=== PATIENT | male | born 1995 | race Caucasian/White ===

== ENCOUNTER 2016-12-21 14:27 | Emergency (ER) | payer OTHER ==
[2016-12-21] MEDS ORDERED: ONDANSETRON 4 MG/2 ML VIAL IVP ONE (14:57)
[2016-12-21] MEDS ORDERED: METOCLOPRAMIDE 10 MG/2 ML VIAL IVP ONE (14:57)
[2016-12-21] MEDS ORDERED: NS 1,000 ML IV ONE ×2 (14:57→15:48)
--- NOTE | 2016-12-21 15:10 | EDPHY ---
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 It started after exercising. He has been constant with multiple episodes of vomiting. No bloody emesis. No fever. No trauma to the abdomen. No pain other than the cramping sensation of vomiting. No diarrhea or constipation. No flank pain or urinary complaints. No medications taken today. No known sick contacts. He does associate this with some subjective fever and chills as well as some cramping throughout the body. No other associated complaints or modifying factors REVIEW OF SYSTEMS: Ten systems reviewed and are negative unless otherwise noted in the HPI PERTINENT MEDICAL HISTORY: None EXAMINATION General Appearance: Alert, no distress Head: normocephalic, atraumatic Eyes: Pupils equal and round, no conjunctival pallor or injection ENT, Mouth: Mucous membranes moist. Uvula midline. Neck: Normal inspection, supple, non-tender. Trachea is midline. Respiratory: Lungs are clear to auscultation. No wheezing, rhonchi or crackles. Cardiovascular: Regular rate and rhythm. No murmur. Pulses intact distally. Gastrointestinal: Abdomen is soft and nontender. No distention, rigidity or tympany. Nonacute abdomen Neurological: GCS 15. A&O, nonfocal Skin: Warm and dry, no rash. No petechiae or purpura Extremities: Nontender, no pedal edema Psychiatric: Mood and affect normal DIFFERENTIAL DIAGNOSES: Including but not limited to gastritis, enteritis, colitis, cholecystitis, cholelithiasis, influenza MDM: 3:05 p.m. Nausea vomiting that started this morning. It has been persistent. Associated with some cramping of body. He is not taking any medications. He is in no acute distress. He is vomiting at time my examination. IV fluid and multiple antiemetics have been ordered. 4:50 p.m. Patient is feeling significantly better at this time. He has not vomited since arrival. He is tolerating water intake. He has received 2 L IV fluid resuscitation. Does have some mild abnormalities of his laboratories studies, which we have discussed. I suspected leukocytosis is due to demargination from vomiting. The mild liver function abnormality he can be related to dehydration and/or viral illness. He will be discharged home with 2 forms of antinausea medication. He is instructed to follow up with primary care physician, [facility] on campus, or here to recheck his laboratory studies next week. He is to return to ER should she not tolerate intake by mouth for 24 hours, developed a fever, or any abdominal pain. He is comfortable this plan, he would like to be discharged home, and he is discharged home in stable condition SUPERVISION: This patient was independently evaluated without direct examination by the attending physician. Case was discussed with attending physician. Case discussed with Dr. Meadows Source: Patient, Family Exam Limitations: No limitations - Personal History Current Tetanus/Diphtheria Vaccine: Yes Current Tetanus Diphtheria and Acellular Pertussis (TDAP): Yes - Medical/Surgical History Hx Asthma: No Hx Chronic Respiratory Disease: No Hx Diabetes: No Hx Cardiac Disease: No Hx Renal Disease: No Hx Cirrhosis: No Hx Alcoholism: No Hx HIV/AIDS: No Hx Splenectomy or Spleen Trauma: No Other PMH: depression - Social History Smoking Status: Never smoked Constitutional: Initial Vital Signs Temperature (C) 96.4 F L 12/21/16 14:39 Heart Rate 89 12/21/16 14:39 Respiratory Rate 16 12/21/16 14:39 Blood Pressure 116/88 H 12/21/16 14:39 O2 Sat (%) 97 12/21/16 14:39 O2 Delivery Mode Room Air Allergies/Adverse Reactions: No Known Allergies Allergy (Verified 12/21/16 14:38) Home Medications: Medication Instructions Recorded Ondansetron Odt [Zofran Odt 4 mg 4 mg PO Q6 PRN #12 tab 12/21/16 (*)] PRILOSEC 12/21/16 Promethazine HCl [Phenergan 25mg 25 mg PO Q8 PRN #12 tab 12/21/16 (*)] Medical Decision Making - Data Points Laboratory Results: Laboratory Results 12/21/16 14:54 12/21/16 14:54 12/21/16 12/21/16 12/21/16 15:00 14:54 14:54 WBC 13.96 10^3/uL H 10^3/uL (3.80-9.50) RBC 6.12 10^6/uL 10^6/uL (4.40-6.38) Hgb 17.3 g/dL g/dL (13.7-17.5) Hct 48.9 % % (40.0-51.0) MCV 79.9 fL L fL (81.5-99.8) MCH 28.3 pg pg (27.9-34.1) MCHC 35.4 g/dL g/dL (32.4-36.7) RDW 12.6 % % (11.5-15.2) Plt Count 377 10^3/uL 10^3/uL (150-400) MPV 10.0 fL fL (8.7-11.7) Neut % (Auto) 83.3 % H % (39.3-74.2) Lymph % (Auto) 9.7 % L % (15.0-45.0) [place] % (Auto) 5.6 % % (4.5-13.0) Eos % (Auto) 0.5 % L % (0.6-7.6) Baso % (Auto) 0.5 % % (0.3-1.7) Nucleat RBC Rel Count 0.0 % % (0.0-0.2) Absolute Neuts (auto) 11.63 10^3/uL H 10^3/uL (1.70-6.50) Absolute Lymphs (auto) 1.35 10^3/uL 10^3/uL (1.00-3.00) Absolute Monos (auto) 0.78 10^3/uL 10^3/uL (0.30-0.80) Absolute Eos (auto) 0.07 10^3/uL 10^3/uL (0.03-0.40) Absolute Basos (auto) 0.07 10^3/uL 10^3/uL (0.02-0.10) Absolute Nucleated RBC 0.00 10^3/uL 10^3/uL (0-0.01) Immature Gran % 0.4 % % (0.0-1.1) Immature Gran # 0.06 10^3/uL 10^3/uL (0.00-0.10) Sodium 139 mEq/L mEq/L (134-144) Potassium 3.8 mEq/L mEq/L (3.5-5.2) Chloride 104 mEq/L mEq/L (97-110) Carbon Dioxide 14 mEq/l L mEq/l (22-31) Anion Gap 21 mEq/L H mEq/L (8-16) BUN 17 mg/dL mg/dL (7-23) Creatinine 1.0 mg/dL mg/dL (0.7-1.3) Estimated GFR > 60 Glucose 153 mg/dL H mg/dL (70-100) Calcium 11.0 mg/dL H mg/dL (8.5-10.4) Phosphorus 2.2 mg/dL L mg/dL (2.5-4.5) Total Bilirubin 1.1 mg/dL mg/dL (0.1-1.4) Conjugated Bilirubin 0.5 mg/dL mg/dL (0.0-0.5) Unconjugated Bilirubin 0.6 mg/dL mg/dL (0.0-1.1) AST 66 IU/L H IU/L (17-59) ALT 90 IU/L H IU/L (21-72) Alkaline Phosphatase 98 IU/L IU/L (38-126) Total Protein 9.3 g/dL H g/dL (6.3-8.2) Albumin 5.5 g/dL H g/dL (3.5-5.0) Lipase 54.0 IU/L IU/L (23-300) Influenza Typ A,B (DFA) NEGATIVE FOR FLU (NEGATIVE) Medications Given: Discontinued Medications Diphenhydramine HCl (Benadryl Injection) 50 mg IVP EDNOW ONE Stop: 12/21/16 14:59 Last Admin: 12/21/16 15:09 Dose: 50 mg Sodium Chloride (Ns) 1,000 mls @ 0 mls/hr IV ONCE ONE PRN Reason: Wide Open Stop: 12/21/16 14:58 Last Admin: 12/21/16 15:09 Dose: 1,000 mls Sodium Chloride (Ns) 1,000 mls @ 0 mls/hr IV ONCE ONE PRN Reason: Wide Open Stop: 12/21/16 15:49 Last Admin: 12/21/16 15:53 Dose: 1,000 mls Metoclopramide HCl (Reglan Injection) 10 mg IVP EDNOW ONE Stop: 12/21/16 14:58 Last Admin: 12/21/16 15:09 Dose: 10 mg Ondansetron HCl (Zofran) 4 mg IVP EDNOW ONE Stop: 12/21/16 14:58 Last Admin: 12/21/16 15:10 Dose: 4 mg Departure - Departure Disposition: Home, Routine, Self-Care Clinical Impression: Transaminitis Nausea & vomiting Qualifiers: Vomiting type: unspecified Vomiting Intractability: non-intractable Qualified Code(s): R11.2 - Nausea with vomiting, unspecified Condition: Good Instructions: Acute Nausea and Vomiting (ED) Additional Instructions: Increase fluid intake. Advance diet slowly. Nausea medicines as needed. Follow up with primary care physician next week to recheck liver function test. Return here if unable to do so or for worsening symptoms Referrals: Rick Cheatham MD [Primary Care Provider] - As per Instructions [facility] ,. [Clinic] - As per Instructions Stand Alone Forms: School Excuse Prescriptions: Ondansetron Odt [Zofran Odt 4 mg (*)] 4 mg PO Q6 PRN #12 tab PRN Reason: Nausea/Vomiting, Use 1st Promethazine HCl [Phenergan 25mg (*)] 25 mg PO Q8 PRN #12 tab PRN Reason: Nausea/Vomiting, Use 1st
[2016-12-21 15:14] LABS: % IMMATURE GRANULYOCYTES 0.4 % (0.0-1.1); ABSOLUTE IMMATURE GRANULOCYTES 0.06 10^3/uL (0.00-0.10); ADD DIFF? NO; ADD MORPH? NO; ADD SCAN? NO; ATYPICAL LYMPHOCYTE FLAG 0 (0-99); FRAGMENT RBC FLAG 0 (0-99); HEMATOCRIT 48.9 % (40.0-51.0); HEMOGLOBIN 17.3 g/dL (13.7-17.5); LEFT SHIFT FLG 20 (0-99); LIPEMIA HEMOLYSIS FLAG 90 (0-99); MEAN CELL HEMOGLOBIN 28.3 pg (27.9-34.1); MEAN CELL HEMOGLOBIN CONCENTR. 35.4 g/dL (32.4-36.7); MEAN CELL VOLUME 79.9 fL (81.5-99.8); PLATELET CLUMPS FLAG 10 (0-99); PLATELET COUNT 377 10^3/uL (150-400); RED BLOOD CELL COUNT 6.12 10^6/uL (4.40-6.38); RED CELL DISTRIBUTION WIDTH 12.6 % (11.5-15.2)
[2016-12-21 15:35] LABS: ALANINE AMINOTRANSFERASE 90 IU/L (21-72); ALBUMIN 5.5 g/dL (3.5-5.0); ALKALINE PHOSPHATASE 98 IU/L (38-126); ANION GAP 21 mEq/L (8-16); ASPARTATE AMINOTRANSFERASE 66 IU/L (17-59); BILIRUBIN,TOTAL 1.1 mg/dL (0.1-1.4); BILIRUBIN-CONJUGATED 0.5 mg/dL (0.0-0.5); BILIRUBIN-UNCONJUGATED 0.6 mg/dL (0.0-1.1); CARBON DIOXIDE 14 mEq/l (22-31); CHLORIDE 104 mEq/L (97-110); GLOMERULAR FILTRATION RATE > 60; GLUCOSE 153 mg/dL (70-100); POTASSIUM 3.8 mEq/L (3.5-5.2); SODIUM 139 mEq/L (134-144); TOTAL PROTEIN 9.3 g/dL (6.3-8.2)
[2016-12-21 17:13] VITALS: BP 131/81; PULSE 86; RESP 16; TEMP 98.4; O2SAT 97
[2016-12-21] MEDS ORDERED: ONDANSETRON 4MG PREPACK#2 BTL TAKEHOME ONE (18:10)
== END 2016-12-21 17:13 | disposition home or self-care (01) ==
DX: R11.2 Nausea with vomiting, unspecified (principal); R74.0 Nonspecific elevation of levels of transaminase and lactic acid dehydrogenase [LDH]
CPT/HCPCS: 96374; J1200; J2405; J2765

== ENCOUNTER 2017-02-07 10:40 | Observation (INO) | payer OTHER ==
[2017-02-07] MEDS ORDERED: BUPIVACAINE 0.5% 30 ML SDV ONE (10:46)
[2017-02-07] MEDS ORDERED: LR 1,000 ML IV ONE (11:29)
[2017-02-07] MEDS ORDERED: cefOXitin SODIUM 2 GM in D5W 100 ML IV ONE (11:37)
[2017-02-07] MEDS ORDERED: ONDANSETRON 4 MG/2 ML VIAL IVP PRN ×2 (11:37→13:44)
[2017-02-07] MEDS ORDERED: HYDROmorphONE/DILAUDID 1 MG/ML SYR IVP PRN (11:38)
[2017-02-07] MEDS ORDERED: HYDROmorphONE/DILAUDID 1 MG/ML SYR ONE (11:46)
[2017-02-07] MEDS ORDERED: ONDANSETRON 4 MG/2 ML VIAL ONE (11:46)
[2017-02-07] MEDS ORDERED: LR 1,000 ML IV SCH ×2 (12:00→14:00)
--- NOTE | 2017-02-07 12:15 | PDGENHP ---
History & Physical Chief Complaint: Abdominal pain History of Present Illness: 1 day h/o abd pain, N/V. Gradually worsened and presented to UC. U/S shows 9mm noncompressible appendix. No F/C. Pertinent Past, Social, Family History: Septoplasty. FHx N/C. NS Relevant Physical Exam: Alert, NAD. RRR. CTA B. Abd soft, mod TTP at and lat to McBurney's. No rebound, +/- guarding. Cardiorespiratory Assessment: NL. A: Appendicitis. P: Lap appy. Risks/ benefits discussed in detail. Risks of not operating explained. Questions answered.
--- NOTE | 2017-02-07 12:24 | PDANEPAE ---
ANE Past Medical History - Cardiovascular History Hx Hypertension: No Hx Arrhythmias: No Hx Chest Pain: No Hx Coronary Artery / Peripheral Vascular Disease: No Hx CHF / Valvular Disease: No Hx Palpitations: No - Pulmonary History Hx COPD: No Hx Asthma/Reactive Airway Disease: No Hx Recent Upper Respiratory Infection: No Hx Oxygen in Use at Home: No - Neurologic History Hx Cerebrovascular Accident: No Hx Seizures: No Hx Dementia: No - Endocrine History Hx Diabetes: No - Renal History Hx Renal Disorders: No - Liver History Hx Hepatic Disorders: No - Neurological & Psychiatric Hx Hx Neurological and Psychiatric Disorders: No - Cancer History Hx Cancer: No - Congenital Disorder History Hx Congenital Disorders: No - GI History Hx Gastrointestinal Disorders: No ANE Review of Systems Review of Systems: Currently nauseated, painful abdomen. No URI x 2 weeks. - Exercise capacity METS (RN): 5 METS - Systems Constitutional: Reports: no symptoms Respiratory: Reports: other (possible YOLETTE) Gastrointestinal: Reports: vomitting, abdominal pain ANE Patient History - Allergies Allergies/Adverse Reactions: No Known Allergies Allergy (Verified 12/21/16 14:38) - Home Medications Home Medications: PRILOSEC 12/21/16 [Last Taken 02/06/17] - NPO status NPO Since - Liquids (Date): 02/06/17 NPO Since - Liquids (Time): 23:00 NPO Since - Solids (Date): 02/06/17 NPO Since - Solids (Time): 23:00 - Anes Hx Anes Hx: no prior problems - Smoking Hx Smoking Status: Former smoker Marijuana use: No - Alcohol Use Alcohol Use: Occasionally - Family Anes Hx Family Anes Hx: none Family Hx Anesthesia Complications: no family hx of complications ANE Labs/Vital Signs - Vital Signs Blood Pressure: 143/98 Heart Rate: 18 Respiratory Rate: 18 O2 Sat (%): 98 Height: 180.34 cm Weight: 99.79 kg ANE Physical Exam - Airway Mallampati Score: Class 2 Mouth exam: normal dental/mouth exam - Pulmonary Pulmonary: no respiratory distress - Cardiovascular Cardiovascular: regular rate and rhythym - ASA Status ASA Status: II, E ANE Anesthesia Plan Anesthesia Plan: general endotracheal anesthesia
[2017-02-07] MEDS ORDERED: fentaNYL 100 MCG/2 ML INJ ONE ×3 (12:39→14:15)
[2017-02-07] MEDS ORDERED: PROPOFOL 200 MG/20 ML VIAL ONE (12:39)
[2017-02-07] MEDS ORDERED: DEXAMETHASONE 4 MG/ML VIAL ONE ×2 (12:39→13:11)
[2017-02-07] MEDS ORDERED: LIDOCAINE 2% 5 ML SDV ONE (12:40)
[2017-02-07] MEDS ORDERED: SUCCINYLCHOLINE CHLORIDE*ANESTHESIA ONLY*200 MG/10 ML SYR IVP ONE (12:40)
[2017-02-07] MEDS ORDERED: ROCURONIUM 50 MG/5 ML VIAL ONE (12:40)
[2017-02-07] MEDS ORDERED: PROPOFOL/EMULSION 500 MG/50 ML BOTTLE IV ONE (12:55)
[2017-02-07] MEDS ORDERED: KETOROLAC 30 MG/1 ML SDV ONE (13:13)
[2017-02-07] MEDS ORDERED: NALOXONE HCL 0.4 MG/ML INJ IVP PRN ×2 (13:17)
[2017-02-07] MEDS ORDERED: ACETAMINOPHEN 500 MG TAB PO PRN (13:17)
[2017-02-07] MEDS ORDERED: D5W LR 500 ML IV PRN (13:17)
[2017-02-07] MEDS ORDERED: PROMETHAZINE HCL 25 MG/ML INJ IVP PRN (13:17)
[2017-02-07] MEDS ORDERED: ALBUTEROL 3 ML DEYVIAL IH PRN (13:17)
--- NOTE | 2017-02-07 13:46 | POSTOPPROG ---
Post Op Note Date of Operation: 02/07/17 Surgeon: Rigo Pinto Anesthesiologist: Dr. Hoyt Anesthesia: GET(General Endotracheal) Pre-op Diagnosis: Appendicitis Post-op Diagnosis: same Procedure: Lap appy Findings: No evidence perforation Inf/Abcess present in the surg proc area at time of surgery?: Yes Depth: Organ Space EBL: Minimal
--- NOTE | 2017-02-07 14:12 | POSTANESTH ---
Post Anesthetic Evaluation Respiratory Status: Requires Airway Assist (Currently on CPAP.) Level of Consciousness/Mental Status: Can Participate in Eval, Mildly Sleepy, Arousable Pain Control: Inadeq, Add Tx Required Nausea/Vomiting Control: Adequate, Prn Tx Ordered Notes: Pt arrived in PACU somnolent and obstructing. Required aggressive jaw thrust to maintain patent airway despite oral airway and HOB up 75 degrees. Respiratory therapy placed pt on BiPAP, which helped a bit until patient awake. Now on CPAP. Anticipate need for CPAP and possibly BiPAP tonight while patient requiring post-op pain medication and sleeping. Will inform surgeon.
[2017-02-07] MEDS: fentaNYL 100 MCG/2 ML INJ IVP PRN ×2 (14:15→14:30)
--- NOTE | 2017-02-07 14:56 | GOP ---
[f rep st] OPERATIVE REPORT DATE OF OPERATION: 02/07/2017 SURGEON: Aguila Pinto MD ANESTHESIA: General endotracheal anesthesia per Dr. Bose. PREOPERATIVE DIAGNOSIS: Acute appendicitis. POSTOPERATIVE DIAGNOSIS: Acute appendicitis. PROCEDURE PERFORMED: Laparoscopic appendectomy. FINDINGS: Patient had acute appendicitis without evidence of perforation. ESTIMATED BLOOD LOSS: 20 cc. INDICATIONS: A 21-year-old male with a history of abdominal pain. Ultrasound demonstrated appendic itis. Risks and benefits of the procedure were discussed with the patient, questions were answered. They wished to proceed. DESCRIPTION OF PROCEDURE: The patient was in the supine position. After the induction of adequate general endotracheal anesthesia, the patient was prepped and draped in the standard surgical fashion . Marcaine 0.5% was injected throughout the infraumbilical area and a 5-mm incision was made. The abdominal wall was elevated and the Veress needle was inserted. After noting proper pressures, the abdomen was insufflated with carbon dioxide. A 5-mm trocar was passed and the camera followed. The re was no apparent damage with trocar placement. Two more ports were placed, one 5-mm port in the s uprapubic midline and one 12-mm port in the left lower quadrant. These were both placed under direc t vision after injecting 0.5% Marcaine for local anesthesia. The abdomen was inspected. The base of the appendix was then dissected. A window was opened in the mesentery using blunt dissection. An Endo ZACKERY stapler with a vascular load was passed across the m esoappendix and fired. A bowel load was then passed across the base of the appendix and fired. The terminal ileum was seen to be clear of these firings. The appendix was placed into an Endo Catch b ag and withdrawn through the 12-mm port. The abdomen was then inspected. Good hemostasis was noted. The fascia at the 12-mm port site was c losed using 0 Vicryl in a [id number] fashion. The wounds were thoroughly irrigated and the ski n at all sites was closed with 4-0 Monocryl in a subcuticular stitch. The wounds were sterilely huber ssed. The patient was extubated and taken to the PACU in stable condition. COMPLICATIONS: None. DRAINS: None. /[id number]/MODL
[2017-02-07] MEDS: OXYCODONE/APAP 5/325 TAB PO PRN (20:05)
[2017-02-08] MEDS: OXYCODONE/APAP 5/325 TAB PO PRN (04:01)
[2017-02-08 08:21] VITALS: BP 118/68; PULSE 78; RESP 18; TEMP 98.1; O2SAT 95
== END 2017-02-08 09:00 | disposition home or self-care (01) ==
LOC: FSGY 10:40 → F3E 13:43 → F2W 15:05
PROVIDERS: ADMIT Surgery; ATTEND Surgery
PROC: 0DTJ4ZZ Resection of Appendix, Percutaneous Endoscopic Approach (ICD-10-PCS; principal; 2017-02-07 12:00)
DX: K35.80 Unspecified acute appendicitis (principal)
CPT/HCPCS: 44970; G0378; J0330; J0694; J1100; J1170; J1885; J2405; J2704; J3010

== ENCOUNTER → 2017-02-07 | Outpatient (CLI) | payer OTHER | LOC: BMCIMAGING 09:01 | PROVIDERS: ATTEND Family Medicine | DX: K38.8 Other specified diseases of appendix (principal); R10.31 Right lower quadrant pain; R11.2 Nausea with vomiting, unspecified; R19.7 Diarrhea, unspecified ==